=== PATIENT | female | born 1985 | race Two or more races ===

== ENCOUNTER 2018-01-05 18:07 | Emergency (ER) | payer MEDICAID ==
[~2018-01-05] VITALS: Ht 160 cm; Wt 72.6 kg
[~2018-01-05 18:07] MED LIST: ALBUTEROL SULF8.5 GM INH; IBUPROFEN600 MG PO
[2018-01-05] MEDS ORDERED: IBUPROFEN600 MG ORAL (19:17)
[2018-01-05 19:21] VITALS: BP 113/74
--- NOTE | 2018-01-05 20:31 | Emergency Room Report ---
History of Present Illness General Chief Complaint: Lower Extremity Injury Source: Patient (KEVIN VALERIO) Present Illness HPI The patient is a 32-year-old female presenting for left ankle pain which began yesterday. She states that she was walking and felt her left ankle twist underneath her. She did not fall. Pain has continued and is a 7/10 dull ache. Does not radiate. Worse with movement. She denies previous injury to the area. She has not taken any medications. She denies other symptoms including calf pain, numbness, or tingling (KEVIN VALERIO) Allergies: Coded Allergies: NO KNOWN ALLERGIES (Unverified Allergy, Unknown, 07/17/15) Patient History Past Medical History: see triage record Pertinent Family History: none Reviewed Nursing Documentation: PMH: Agreed, PSxH: Agreed (KEVIN VALERIO) Nursing Documentation-PMH Past Medical History: No Stated History Hx Gastrointestinal Problems: No - C/S in 2011 (KEVIN VALERIO) Review of Systems All Other Systems: negative except mentioned in HPI (KEVIN [email or web address]) Physical Exam Vital Signs Date Time Temp Pulse Resp B/P (MAP) Pulse Ox O2 Delivery O2 Flow Rate FiO2 01/05/18 18:44 97.9 82 18 113/74 98 Room Air 97.9 Sp02 EP Interpretation: reviewed, normal General Appearance: no apparent distress, alert, GCS 15, non-toxic Head: normocephalic, atraumatic Eyes: bilateral eye normal inspection, bilateral eye PERRL Musculoskeletal: no calf tenderness, decreased range of motion, tender - TTP over the L lateral ankle Neurologic: alert, oriented x3, responsive, motor strength/tone normal, sensory intact, speech normal Psychiatric: judgement/insight normal, memory normal, mood/affect normal, no suicidal/homicidal ideation Skin: normal color, no rash, warm/dry, well hydrated (KEVIN [email or web address].Bailey) Procedures Splinting Splinting : Consent: Verbal Location: L ankle Pre-Made Type: EDEN wrap Pre-Proc Neuro Vasc Exam: normal Post-Proc Neuro Vasc Exam: normal Patient Tolerated: Well Complications: None (KEVIN [email or web address]) Medical Decision Making PA Attestation Dr. Kan is my supervising physician. Patient management was discussed with my supervising physician (KEVIN VALERIO) Diagnostic Impression: Primary Impression: Left ankle sprain Qualified Codes: S93.402A - Sprain of unspecified ligament of left ankle, initial encounter ER Course The patient is a 32-year-old female presenting for left ankle pain which began yesterday Ddx considered include but not limited to sprain/strain, fracture, contusion Physical exam: Vitals within normal limits. No apparent distress Left ankle: There is tenderness to palpation and edema over the left lateral malleolus. Limited active range of motion. Sensation intact to light touch. X-ray of the left ankle is unremarkable Left ankle placed in EDEN wrap and the patient is provided crutches. ER precautions are given. Patient given prescription for Motrin and will follow up with primary care physician. (KEVIN VALERIO) Other X-Ray Diagnostic Results Other X-Ray Diagnostic Results : X-Ray ordered: L ankle # of Views/Limited Vs Complete: 3 View Indication: Pain EP Interpretation: Yes PA Xray: Interpretation reviewed, by supervising MD, and agrees with findings. Interpretation: no dislocation, no soft tissue swelling, no fractures Impression: No acute disease Electronically Signed by: Kevin Valerio PA-C (KEVIN VALERIO) Other X-Ray Diagnostic Results : PA Xray: Interpretation reviewed, by supervising MD, and agrees with findings. - Alf Kan MD (Alf Kan M.D.) Last Vital Signs Date Time Temp Pulse Resp B/P (MAP) Pulse Ox O2 Delivery O2 Flow Rate FiO2 01/05/18 19:21 97.9 18 113/74 98 Room Air 208.2 01/05/18 18:44 82 Status: improved (KEVIN VALERIO) Disposition: HOME, SELF-CARE Condition: Improved Scripts Ibuprofen* (MOTRIN*) 600 Mg Tablet 600 MG ORAL Q8H Y for For Pain, #30 TAB 0 Refills Prov: KEVIN VALERIO 01/05/18 Referrals: NOT CHOSEN IPA/,REFERRING (PCP) Patient Instructions: Ankle Sprain Additional Instructions: I discussed my findings with the patient. All questions and concerns have been answered. Treatment and medication compliance have been addressed. I advised the patient that they need to follow up with PMD in 3-5 days. Return to ED if pain remains or worsens, numbness or tingling occurs, new rash is noticed, fever is noticed, or if needed for any reason. Patient verbalized understanding of discharge instructions. KEVIN VALERIO Jan 05, 2018 20:31 Alf Kan M.D. Jan 07, 2018 02:35
--- NOTE | 2018-01-06 12:01 | Diagnostic Imaging Report ---
Indication: left ankle pain Comparison: None Findings: 3 views of the left ankle obtained. No acute fracture, malalignment, periostitis, or osteochondral defects are identified. Soft tissues are unremarkable. Impression: No acute findings
== END 2018-01-05 19:20 | disposition home or self-care (01) ==
LOC: EMR 18:42
DX: S93.402A Sprain of unspecified ligament of left ankle, initial encounter (principal); X50.9XXA Other and unspecified overexertion or strenuous movements or postures, initial encounter; Y93.01 Activity, walking, marching and hiking; Y92.9 Unspecified place or not applicable
CPT/HCPCS: 29540; 99283

== ENCOUNTER 2018-08-03 17:49 | Emergency (ER) | payer MEDICAID ==
[~2018-08-03] VITALS: Ht 160 cm; Wt 68.0 kg
[~2018-08-03 17:49] MED LIST changes: +IBUPROFEN600 MG ORAL
[2018-08-03] MEDS ORDERED: NKM (18:05)
--- NOTE | 2018-08-03 18:32 | Emergency Room Report ---
History of Present Illness General Chief Complaint: Palpitations Source: Patient Present Illness HPI Patient presents complaining about palpitations and dyspnea at night. She's been having increased palpitations for the last week. She feels her heart racing at these times. She does drink alcohol but not heavily. Last few nights she's been awakened with dyspnea. She also has tingling of her fingers at that time. She feels weak and that she might pass out during that time. There is no chest pain. She has no nausea or vomiting. She doesn't think she is . There's been no fever or chills. She does have a fair amount of stress. In the past she was given rx for Xanax. No sore throat, cough, rashes, headache, joint pain. Has not been evaluated for this before. Allergies: Coded Allergies: NO KNOWN ALLERGIES (Unverified Allergy, Unknown, 07/17/15) Patient History Past Medical History: see triage record Social History: Reports: smoking, alcohol use Social History Narrative youngest 6 oldest 13, born [place] Last Menstrual Period: 07/26/18 Reviewed Nursing Documentation: PMH: Agreed; PSxH: Agreed Nursing Documentation-PMH Past Medical History: No History, Except For Hx Gastrointestinal Problems: No - C/S in 2011 History Of Psychiatric Problem: Yes - anxiety Review of Systems All Other Systems: negative except mentioned in HPI Physical Exam Vital Signs Date Time Temp Pulse Resp B/P (MAP) Pulse Ox O2 Delivery O2 Flow Rate FiO2 08/03/18 18:02 98.3 76 14 114/75 99 Room Air 98.2 Sp02 EP Interpretation: reviewed, normal General Appearance: well appearing, no apparent distress, GCS 15 Head: normocephalic Eyes: bilateral eye normal inspection, bilateral eye PERRL ENT: moist mucus membranes Neck: supple Respiratory: lungs clear, normal breath sounds Cardiovascular #1: regular rate, rhythm Cardiovascular #2: 2+ radial (R) Gastrointestinal: normal inspection, normal bowel sounds, non tender, no mass, non-distended Musculoskeletal: back normal, gait/station normal, normal range of motion Neurologic: alert, oriented x3, motor strength/tone normal, DTRs symmetric, sensory intact, cerebellar normal, normal gait, speech normal Psychiatric: anxious Skin: normal inspection, warm/dry Medical Decision Making Diagnostic Impression: Primary Impression: Palpitations Additional Impression: Stress ER Course Patient presents with palpitations and tingling in her fingers. Differential includes anxiety, hyperglycemia, electrolyte imbalance, acute coronary syndrome , arrhythmia, anxiety with hyperventilation amongst others. Based on her physical and presentation of pulmonary embolus is less likely. Evaluation will be with EKG, chest x-ray and labs. The patient will be treated with IV hydration. EKG without injury. CXR clear. Labs with normal CBC, CMP, troponin, TSH, UA. Improved with observation and hydration. Discussed pertinent negatives and need for further evaluation. Also discussed propranolol. Patient stable for outpatient observation and treatment. Laboratory Tests Test 08/03/18 18:20 White Blood Count 7.4 K/UL (4.8-10.8) Red Blood Count 4.33 M/UL (4.20-5.40) Hemoglobin 13.3 G/DL (12.0-16.0) Hematocrit 38.3 % (37.0-47.0) Mean Corpuscular Volume 89 FL (80-99) Mean Corpuscular Hemoglobin 30.7 PG (27.0-31.0) Mean Corpuscular Hemoglobin Concent 34.7 G/DL (32.0-36.0) Red Cell Distribution Width 11.9 % (11.6-14.8) Platelet Count 290 K/UL (150-450) Mean Platelet Volume 7.0 FL (6.5-10.1) Neutrophils (%) (Auto) 48.4 % (45.0-75.0) Lymphocytes (%) (Auto) 39.4 % (20.0-45.0) Monocytes (%) (Auto) 8.3 % (1.0-10.0) Eosinophils (%) (Auto) 2.8 % (0.0-3.0) Basophils (%) (Auto) 1.2 % (0.0-2.0) Prothrombin Time 10.5 SEC (9.30-11.50) Prothrombin Time INR 1.0 (0.9-1.1) PTT 29 SEC (23-33) Urine Color Jayde Urine Appearance Slightly cloudy Urine pH 7 (4.5-8.0) Urine Specific [place] 1.015 (1.005-1.035) Urine Protein Negative (NEGATIVE) Urine Glucose (UA) Negative (NEGATIVE) Urine Ketones Negative (NEGATIVE) Urine Blood 3+ (NEGATIVE) H Urine Nitrite Negative (NEGATIVE) Urine Bilirubin Negative (NEGATIVE) Urine Ictotest Negative (NEGATIVE) Urine Urobilinogen 4 MG/DL (0.0-1.0) H Urine Leukocyte Esterase 1+ (NEGATIVE) H Urine RBC 10-15 /HPF (0 - 2) H Urine WBC 2-4 /HPF (0 - 2) Urine Squamous Epithelial Cells Moderate /LPF (NONE/OCC) H Urine Amorphous Sediment Many /LPF (NONE) H Urine Bacteria Few /HPF (NONE) Urine HCG, Qualitative Negative (NEGATIVE) Sodium Level 143 MMOL/L (136-145) Potassium Level 3.6 MMOL/L (3.5-5.1) Chloride Level 108 MMOL/L (98-107) H Carbon Dioxide Level 26 MMOL/L (21-32) Anion Gap 9 mmol/L (5-15) Blood Urea Nitrogen 15 mg/dL (7-18) Creatinine 0.8 MG/DL (0.55-1.30) Estimate Glomerular Filtration Rate > 60 mL/min (>60) Glucose Level 121 MG/DL (74-106) H Calcium Level 9.1 MG/DL (8.5-10.1) Total Bilirubin 0.2 MG/DL (0.2-1.0) Aspartate Amino Transferase (AST) 16 U/L (15-37) Alanine Aminotransferase (ALT) 26 U/L (12-78) Alkaline Phosphatase 78 U/L (46-116) Total Creatine Kinase 129 U/L (26-308) Troponin I 0.000 ng/mL (0.000-0.056) Total Protein 7.7 G/DL (6.4-8.2) Albumin 3.6 G/DL (3.4-5.0) Globulin 4.1 g/dL Albumin/Globulin Ratio 0.9 (1.0-2.7) L Lipase 103 U/L (73-393) Thyroid Stimulating Hormone (TSH) Pending Urine Opiates Screen Negative (NEGATIVE) Urine Barbiturates Screen Negative (NEGATIVE) Phencyclidine (PCP) Screen Negative (NEGATIVE) Urine Amphetamines Screen Negative (NEGATIVE) Urine Benzodiazepines Screen Negative (NEGATIVE) Urine Cocaine Screen Negative (NEGATIVE) Urine Marijuana (THC) Screen Negative (NEGATIVE) EKG Diagnostic Results Rate: normal Rhythm: NSR ST Segments: no acute changes - incomplete RBBB Rhythm Strip Diag. Results Rhythm: NSR, no PVC's, no ectopy Chest X-Ray Diagnostic Results Chest X-Ray Diagnostic Results : Chest X-Ray Ordered: Yes # of Views/Limited/Complete: 1 View Indication: Other EP Interpretation: Yes Interpretation: no consolidation, no effusion, no pneumothorax, other - rotated Impression: No acute disease Electronically Signed by: Alf Kan MD Last Vital Signs Date Time Temp Pulse Resp B/P (MAP) Pulse Ox O2 Delivery O2 Flow Rate FiO2 08/03/18 21:19 98.2 14 114/75 99 Room Air 98.2 08/03/18 18:02 76 Status: improved Disposition: HOME, SELF-CARE Condition: Improved Scripts Propranolol Hcl* (INDERAL*) 10 Mg Tablet 10 MG ORAL HS, #12 TAB 1 Refill Prov: Alf Kan M.D. 08/03/18 Alf Kan M.D. Aug 03, 2018 18:32
[2018-08-03 18:42] LABS: BASOPHILS % (AUTO) 1.2 % (0.0-2.0); EOSINOPHILS % (AUTO) 2.8 % (0.0-3.0); HEMATOCRIT 38.3 % (37.0-47.0); HEMOGLOBIN 13.3 G/DL (12.0-16.0); LYMPHOCYTES % (AUTO) 39.4 % (20.0-45.0); MEAN CORPUSCULAR VOLUME 89 FL (80-99); MONOCYTES % (AUTO) 8.3 % (1.0-10.0); NEUTROPHILS % (AUTO) 48.4 % (45.0-75.0); PLATELET COUNT 290 K/UL (150-450); RED BLOOD COUNT 4.33 M/UL (4.20-5.40); RED CELL DISTRIBUTION WIDTH 11.9 % (11.6-14.8); WHITE BLOOD COUNT 7.4 K/UL (4.8-10.8)
[2018-08-03 18:48] LABS: APPEARANCE,URINE SLIGHTLY CLOUDY; BILIRUBIN, URINE NEGATIVE (NEGATIVE); COLOR,URINE AMBER; GLUCOSE, URINE (UA) NEGATIVE (NEGATIVE); KETONES,URINE NEGATIVE (NEGATIVE); LEUKOCYTE ESTERASE ,URINE 1+ (NEGATIVE); NITRITE,URINE NEGATIVE (NEGATIVE); PH,URINE 7 (4.5-8.0); PROTEIN,URINE NEGATIVE (NEGATIVE); UROBILINOGEN,URINE 4 MG/DL (0.0-1.0)
[2018-08-03 18:55] LABS: ANION GAP 9 mmol/L (5-15); BLOOD UREA NITROGEN 15 mg/dL (7-18); CALCIUM 9.1 MG/DL (8.5-10.1); CARBON DIOXIDE 26 MMOL/L (21-32); CHLORIDE 108 MMOL/L (98-107); CREATININE 0.8 MG/DL (0.55-1.30); POTASSIUM 3.6 MMOL/L (3.5-5.1); SODIUM 143 MMOL/L (136-145)
[2018-08-03 19:02] VITALS: BP 114/75
[2018-08-03 19:02] LABS: ALANINE AMINOTRANSFERASE 26 U/L (12-78); ALBUMIN 3.6 G/DL (3.4-5.0); ALBUMIN/GLOBULIN RATIO 0.9 (1.0-2.7); ALKALINE PHOSPHATASE 78 U/L (46-116); ASPARTATE AMINO TRANSFERASE 16 U/L (15-37); BILIRUBIN,TOTAL 0.2 MG/DL (0.2-1.0); CREATINE KINASE 129 U/L (26-308)
[2018-08-03] MEDS ORDERED: PROPRANOLOL HCL10 MG ORAL (20:29)
[2018-08-03 21:19] VITALS: BP 114/75
--- NOTE | 2018-08-04 15:50 | Diagnostic Imaging Report ---
Indication: Pain Technique: XRAY Chest 1v Comparison: 05/09/2016 FINDINGS/IMPRESSION: Limited exam due to patient positioning, with the patient leaning and significantly rotated to the right. Within these limitations the following observations are made: Heart size and mediastinal contours are likely stable. There is no definite focal airspace consolidation. Costophrenic sulci are sharp. No pneumothorax. No appreciable acute osseous abnormality. Repeat exam with improved patient positioning can be obtained for more sensitive evaluation as clinically indicated.
--- NOTE | 2018-08-04 19:55 | Cardiology Report ---
APPROVED REPORT EKG Measurement Heart [id number] FL [id number] Normal sinus rhythm Incomplete right bundle branch block Borderline ECG
== END 2018-08-03 21:20 | disposition home or self-care (01) ==
LOC: EMR 18:25
DX: R00.2 Palpitations (principal); R20.2 Paresthesia of skin; F41.9 Anxiety disorder, unspecified
CPT/HCPCS: 36415; 71045; 80053; 80307; 81003; 81025; 82550; 83690; 84443; 84484; 85025; 85610; 85730; 93005; 96360; 96361; 99284

== ENCOUNTER 2018-12-30 19:05 | Emergency (ER) | payer MEDICAID ==
[~2018-12-30] VITALS: Ht 152.4 cm; Wt 74.4 kg
[~2018-12-30 19:05] MED LIST changes: +NKM; +PROPRANOLOL HCL10 MG ORAL
[2018-12-30 19:27] VITALS: BP 114/76
--- NOTE | 2018-12-30 19:27 | NUR ---
ED Nurse Note: pt came in due to right upper eyelid swelling x 2 days. denies trauma
[2018-12-30] MEDS ORDERED: BENADRYL25 MG ORAL (19:49)
[2018-12-30] MEDS ORDERED: OPCON-A EYE DRO15 ML OP (19:49)
--- NOTE | 2018-12-30 19:50 | Emergency Room Report ---
History of Present Illness General Chief Complaint: Eye Problems Present Illness HPI 33-year-old female patient presents the ER complaining of swelling over her right eye for the past 2 days. Reports feeling of "heaviness". Reports itchiness. Also reports tearing during this time. Denies eyelid crusting. Denies wearing contact lenses. Denies fever, chest pain, shortness of breath, abdominal pain, vomiting. Denies breathing difficulties. Denies foreign body sensation. Denies vision changes or vision loss. Denies other aggravating or relieving factors. Denies exposure to chemicals in eye. Denies injury or trauma. Allergies: Coded Allergies: NO KNOWN ALLERGIES (Unverified Allergy, Unknown, 07/17/15) Patient History Past Medical History: see triage record Last Menstrual Period: nov 30 2018 Now: No Reviewed Nursing Documentation: PMH: Agreed; PSxH: Agreed Nursing Documentation-PMH Hx Gastrointestinal Problems: No - C/S in 2011 Review of Systems All Other Systems: negative except mentioned in HPI Physical Exam Vital Signs Date Time Temp Pulse Resp B/P (MAP) Pulse Ox O2 Delivery O2 Flow Rate FiO2 12/30/18 19:14 98.8 81 16 114/76 96 Room Air Sp02 EP Interpretation: reviewed, normal General Appearance: well appearing, no apparent distress, alert, GCS 15, non- toxic Head: normocephalic, atraumatic, other - Mild swelling noted over right eye, no tenderness palpation, no erythema or edema Eyes: bilateral eye normal inspection, bilateral eye PERRL, bilateral eye EOMI ENT: hearing grossly normal, normal pharynx, no angioedema, normal voice, uvula midline, moist mucus membranes Neck: full range of motion Respiratory: lungs clear, normal breath sounds, no rhonchi, no respiratory distress, no accessory muscle use, no wheezing, speaking full sentences Gastrointestinal: non tender, soft, no mass, non-distended, no guarding, no rebound Neurologic: alert, oriented x3, responsive, motor strength/tone normal, sensory intact Psychiatric: mood/affect normal Skin: no rash Medical Decision Making PA Attestation Dr. Lamas is my supervising Physician whom patient management has been discussed with. Diagnostic Impression: Primary Impression: Allergic conjunctivitis ER Course Pt. presents to the ED c/o swelling over right eye and heaviness. Also complaining of itchiness of right eye. Ddx considered but are not limited to allergic conjunctivitis, viral conjunctivitis, bacterial conjunctivitis, periorbital cellulitis, URI, sinusitis , keratitis, glaucoma. No reduction in VA, no cilliary flush, no photophobia, no FB sensation, no corneal opacity, low suspicion for keratitis, iritis. No ERVIN, no vomiting, no fixed pupil, no reduction of VA, no ciliary flush, low suspicion for angle closure glaucoma. No yellow or green eye crusting, no conjunctival injection, low suspicion for bacterial conjunctivitis. See nurses note for visual acuity. Vital signs: are WNL, pt. is afebrile Patient has no signs of surrounding cellulitis, no surrounding erythema or warmth to touch, no pain with eye movement, does not require imaging at this time, low suspicion for preseptal cellulitis. ER COURSE: Signs and symptoms consistent with allergic conjunctivitis. Advised patient to apply ice to affected area to help with swelling symptoms. Take Tylenol for pain symptoms. Take Benadryl and use eyedrops as instructed. Benadryl may cause drowsiness, do not take prior to drinking, driving, operating machinery. F/u with ophthalmology. F/u with tape control skin or spar mill operator. ER precautions given. DISCHARGE: Rx provided for Benadryl Rx provided for Naphcon-A At this time pt. is stable for d/c to home. Patient is resting comfortably, in no acute distress, nontoxic appearing, talking and smilng without difficulty. Will provide printed patient care instructions, and any necessary prescriptions. Patient instructed to follow up with straddle bug and discuss further follow up with ophthamology and tape control skin or spar mill operator. Care plan and follow up instructions have been discussed with the patient prior to discharge. Patient questions asked and answered. Patient reports undestanding and agreement to treatment plan. ER precautions given. Patient instructed to return to ER immediately for any new or worsening of symptoms including but not limited to vision loss, fever, changes in vision. - Please note that this Emergency Department Report was dictated using [employer] director technology software, occasionally this can lead to erroneous entry secondary to interpretation by the dictation equipment. Last Vital Signs Date Time Temp Pulse Resp B/P (MAP) Pulse Ox O2 Delivery O2 Flow Rate FiO2 12/30/18 19:27 98.8 81 16 114/76 96 Room Air Disposition: HOME, SELF-CARE Condition: Stable Scripts Naphazoline Hcl/Pheniramine (OPCON-A EYE DROPS) 15 Ml Drops 15 ML OP BID, #15 ML Prov: Montez Joseph 12/30/18 Diphenhydramine Hcl* (BENADRYL*) 25 Mg Capsule 25 MG ORAL DAILY PRN for Itching, #30 CAP Prov: Montez Joseph 12/30/18 Patient Instructions: Allergic Conjunctivitis, [id number] Additional Instructions: Followup with primary care provider in 3 -5 days. Follow-up with tape control skin or spar mill operator and blind eyeletter. Apply cool compresses to affected area. Take Benadryl for itching symptoms, may cause drowsiness, do not take prior to drinking, driving, operating heavy machinery. Take medications as directed. Patient questions asked and answered. ER precautions given, patient instructed to return to ER immediately for any new or worsening of symptoms. Montez Joseph Dec 30, 2018 19:50
--- NOTE | 2018-12-30 20:01 | NUR ---
ED Nurse Note: pt dc per ermd order, pt is aox4, pt dc and prscription instructions given pt verablized understaing pt is id band removed, pt took all belongings pt is able to ambulate with steady gait
[2018-12-30 20:02] VITALS: BP 114/76
== END 2018-12-30 20:01 | disposition home or self-care (01) ==
LOC: EMR 19:34
DX: H10.11 Acute atopic conjunctivitis, right eye (principal)
CPT/HCPCS: 99282

== ENCOUNTER 2019-04-23 23:41 | Emergency (ER) | payer SELFPAY ==
[~2019-04-23] VITALS: Ht 157.5 cm; Wt 72.6 kg
[~2019-04-23 23:41] MED LIST changes: +BENADRYL25 MG ORAL; +OPCON-A EYE DRO15 ML OP
--- NOTE | 2019-04-23 23:55 | NUR ---
ED Nurse Note: pt ambulated to ED from home c/o low abd pain and vaginal bleeding since this afternoon, nausea and vomiting. 08/20 pain. Pt is A&Ox4
[2019-04-24] MEDS ORDERED: DiphenhydrAMINE 50mg/ml Inj IVP ONE
[2019-04-24] MEDS ORDERED: fentaNYL 100 mcg/2 mL IV ONE
[2019-04-24] MEDS ORDERED: Metoclopramide 10mg/2ml Inj IVP ONE
--- NOTE | 2019-04-24 00:04 | Emergency Room Report ---
History of Present Illness General Chief Complaint: Abdominal Pain Source: Patient Present Illness HPI Patient presents with 3 days of vaginal bleeding. It started off as spotting and then tonight she started passing clots just recently. She has only used 1 pad tonight. Also the pain became more severe and she rates it 8-9 over 10. It suprapubic and cramping. She denies any fevers or chills. She denies dysuria. She had a miscarriage in the past and this feels like that. She also has 3 children. She knows her blood type is O+. Vomiting with some morning sickness. Her last menstruation was in February. No fevers, chills, chest pain, palpitations, diarrhea, shortness of breath, depression, visual changes, headache. 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, 9 and 7 Last Menstrual Period: 02/2019 Now: No : 5 Para: 3 Nursing Documentation-H Past Medical History: No Stated History Hx Gastrointestinal Problems: No - C/S in 2011 Review of Systems All Other Systems: negative except mentioned in HPI Physical Exam Vital Signs Date Time Temp Pulse Resp B/P (MAP) Pulse Ox O2 Delivery O2 Flow Rate FiO2 04/23/19 23:44 98.2 81 19 129/82 (98) 97 Room Air Sp02 EP Interpretation: reviewed, normal General Appearance: well appearing, no apparent distress, GCS 15 Head: normocephalic Eyes: bilateral eye normal inspection, bilateral eye PERRL, bilateral eye EOMI ENT: moist mucus membranes Neck: supple Respiratory: lungs clear, normal breath sounds Cardiovascular #1: regular rate, rhythm Cardiovascular #2: 2+ radial (R) Gastrointestinal: normal inspection, normal bowel sounds, non tender, no mass, non-distended Genitourinary: no CVA tenderness, other - See clinical course Musculoskeletal: back normal, gait/station normal, normal range of motion, no calf tenderness Neurologic: alert, oriented x3, grossly normal Psychiatric: mood/affect normal Skin: normal inspection, warm/dry Medical Decision Making Diagnostic Impression: Primary Impression: Spontaneous miscarriage ER Course Patient presents with vaginal bleeding abdominal pain nausea with her last period in February. Differential includes threatened miscarriage, ectopic , UTI. Evaluation will be with labs and ultrasound. The patient will receive IV hydration and Reglan, Benadryl and fentanyl. Patient passed tissue in ED. Sent to path. Labs with normal CBC. CMP unremarkable. O+ blood. Quant elevated but lower than expected. Still with bleeding. Pelvic exam. Removal of some tissue from the cervix. Minimal bleeding. Pain improved. Discussed outpatient observation and reasons for possible return including increased pain, bleeding greater than 3 pads an hour and fever. Patient stable for outpatient observation and treatment. Advised to follow-up with her SCRAP WHEELER. Laboratory Tests Test 04/24/19 00:15 White Blood Count 9.1 K/UL (4.8-10.8) Red Blood Count 4.25 M/UL (4.20-5.40) Hemoglobin 13.1 G/DL (12.0-16.0) Hematocrit 37.6 % (37.0-47.0) Mean Corpuscular Volume 89 FL (80-99) Mean Corpuscular Hemoglobin 30.8 PG (27.0-31.0) Mean Corpuscular Hemoglobin Concent 34.8 G/DL (32.0-36.0) Red Cell Distribution Width 12.4 % (11.6-14.8) Platelet Count 268 K/UL (150-450) Mean Platelet Volume 6.6 FL (6.5-10.1) Neutrophils (%) (Auto) 58.5 % (45.0-75.0) Lymphocytes (%) (Auto) 30.9 % (20.0-45.0) Monocytes (%) (Auto) 7.9 % (1.0-10.0) Eosinophils (%) (Auto) 1.7 % (0.0-3.0) Basophils (%) (Auto) 1.1 % (0.0-2.0) Sodium Level 139 MMOL/L (136-145) Potassium Level 4.0 MMOL/L (3.5-5.1) Chloride Level 104 MMOL/L (98-107) Carbon Dioxide Level 27 MMOL/L (21-32) Anion Gap 8 mmol/L (5-15) Blood Urea Nitrogen 9 mg/dL (7-18) Creatinine 0.8 MG/DL (0.55-1.30) Estimate Glomerular Filtration Rate > 60 mL/min (>60) Glucose Level 101 MG/DL (74-106) Calcium Level 9.7 MG/DL (8.5-10.1) Total Bilirubin 0.3 MG/DL (0.2-1.0) Aspartate Amino Transferase (AST) 16 U/L (15-37) Alanine Aminotransferase (ALT) 22 U/L (12-78) Alkaline Phosphatase 70 U/L (46-116) Total Protein 7.2 G/DL (6.4-8.2) Albumin 4.1 G/DL (3.4-5.0) Globulin 3.1 g/dL Albumin/Globulin Ratio 1.3 (1.0-2.7) Lipase 95 U/L (73-393) Human Chorionic Gonadotropin, Quant 5368 mIU/mL (1-6) H CT/MRI/US Diagnostic Results CT/MRI/US Diagnostic Results : Imaging Test Ordered: Pelvic ultrasound Impression Impression: No definite intrauterine demonstrated. Fluid collection within the lower endometrium/endocervical canal. Suspect that this represents. An empty gestational sac of An in progress, but could also represent residual blood from a completed . Given the lack of definitive intrauterine , other differential considerations include very early , ectopic . Correlation with serial beta disease is recommended, with follow-up sonography as clinically indicated Last Vital Signs Date Time Temp Pulse Resp B/P (MAP) Pulse Ox O2 Delivery O2 Flow Rate FiO2 04/24/19 04:15 98.4 82 16 128/65 99 Room Air Status: improved Disposition: HOME, SELF-CARE Condition: Improved Scripts Tramadol Hcl* (ULTRAM*) 50 Mg Tablet 50 MG ORAL Q6H PRN for For Pain, #6 TAB 0 Refills Prov: Alf Kan MD 04/24/19 Ibuprofen* (MOTRIN*) 600 Mg Tablet 600 MG ORAL Q6H PRN for For Pain, #20 TAB 0 Refills Prov: Alf Kan MD 04/24/19 Acetaminophen (Tylenol) 325 Mg Tablet 650 MG ORAL Q6H PRN for Prn Pain/Headache/Temp > 101, #20 TAB 0 Refills Prov: Alf Kan MD 04/24/19 Alf Kan MD Apr 24, 2019 00:04
[2019-04-24 00:05] VITALS: BP 129/82
--- NOTE | 2019-04-24 00:22 | NUR ---
ED Nurse Note: Pt off the floor to US
[2019-04-24 00:34] LABS: BASOPHILS % (AUTO) 1.1 % (0.0-2.0); EOSINOPHILS % (AUTO) 1.7 % (0.0-3.0); HEMATOCRIT 37.6 % (37.0-47.0); HEMOGLOBIN 13.1 G/DL (12.0-16.0); LYMPHOCYTES % (AUTO) 30.9 % (20.0-45.0); MEAN CORPUSCULAR VOLUME 89 FL (80-99); MONOCYTES % (AUTO) 7.9 % (1.0-10.0); NEUTROPHILS % (AUTO) 58.5 % (45.0-75.0); PLATELET COUNT 268 K/UL (150-450); RED BLOOD COUNT 4.25 M/UL (4.20-5.40); RED CELL DISTRIBUTION WIDTH 12.4 % (11.6-14.8); WHITE BLOOD COUNT 9.1 K/UL (4.8-10.8)
[2019-04-24 00:50] LABS: ANION GAP 8 mmol/L (5-15); BLOOD UREA NITROGEN 9 mg/dL (7-18); CALCIUM 9.7 MG/DL (8.5-10.1); CARBON DIOXIDE 27 MMOL/L (21-32); CHLORIDE 104 MMOL/L (98-107); CREATININE 0.8 MG/DL (0.55-1.30); SODIUM 139 MMOL/L (136-145)
[2019-04-24 00:54] LABS: ALANINE AMINOTRANSFERASE 22 U/L (12-78); ALBUMIN 4.1 G/DL (3.4-5.0); ALBUMIN/GLOBULIN RATIO 1.3 (1.0-2.7); ALKALINE PHOSPHATASE 70 U/L (46-116); ASPARTATE AMINO TRANSFERASE 16 U/L (15-37); BILIRUBIN,TOTAL 0.3 MG/DL (0.2-1.0)
[2019-04-24 02:15] VITALS: BP 134/78
[2019-04-24] MEDS ORDERED: Morphine Sulfate 4mg/ml Inj (IV USE ONLY) IVP ONE (03:00)
[2019-04-24 04:15] VITALS: BP 128/65
--- NOTE | 2019-04-24 05:14 | NUR ---
ED Nurse Note: Dr Kan at bedside preforming vaginal exam, removing blood clots, female RN present. Pt tolerated well. Wet mount and culture sent to the lab
[2019-04-24] MEDS ORDERED: oxyCODONE HCL/Acetaminophen 5/325mg ORAL ONE (05:15)
[2019-04-24] MEDS ORDERED: TRAMADOL HCL50 MG ORAL (06:01)
[2019-04-24] MEDS ORDERED: TYLENOL325 MG ORAL (06:01)
[2019-04-24] MEDS ORDERED: IBUPROFEN600 MG ORAL (06:01)
--- NOTE | 2019-04-24 06:15 | NUR ---
ER DISCHARGE NOTE: Patient is cleared to be discharged per ERMD, pt is aox4, on room air, with stable vital signs. pt was given dc and prescription instructions, pt was able to verbalize understanding, pt id band and iv site removed without complications. pt is able to ambulate with steady gait. pt took all belongings.
--- NOTE | 2019-04-24 10:39 | Diagnostic Imaging Report ---
Indication: Vaginal bleeding, positive urine test, beta hCG [id number] Technique: Transabdominal and transvaginal images of the pelvis. Doppler interrogation of the bilateral ovaries Comparison: none Findings: Due to lack of bladder distention, uterus and ovaries are poorly identified on transabdominal images. Transvaginal images demonstrate a retroverted uterus which measures 8.9 x 5.2 cm. There is a fluid collection within the lower uterine endometrium/endocervical canal which is oblong in shape, does not demonstrate any definite decidual reaction or parts. This measures No myometrial abnormality. Right ovary measures 3.2 cm length. Left ovary measures 2 cm in length. Normal flow is seen within the ovaries on Doppler imaging. No adnexal mass. There is a small amount of free cul-de-sac fluid. Impression: No definite intrauterine demonstrated. Fluid collection within the lower endometrium/endocervical canal. Suspect that this represents. An empty gestational sac of An in progress, but could also represent residual blood from a completed . Given the lack of definitive intrauterine , other differential considerations include very early , ectopic . Correlation with serial beta disease is recommended, with follow-up sonography as clinically indicated This agrees with the preliminary interpretation provided overnight by [facility].
== END 2019-04-24 06:15 | disposition home or self-care (01) ==
LOC: EMR 23:59
DX: O03.9 Complete or unspecified spontaneous abortion without complication (principal)
CPT/HCPCS: 36415; 76801; 80053; 83690; 84702; 85025; 86850; 86900; 86901; 87070; 87210; 96361; 96374; 96375; 99284; J1200; J2270; J2765; J3010